=== PATIENT | female | born 2005 | race Caucasian/White ===

== ENCOUNTER 2024-01-18 18:56 | Emergency (ER) | payer BC, OTHER ==
[~2024-01-18] VITALS: Ht 162.6 cm; Wt 86.3 kg
[2024-01-18 20:07] LABS: Urine Bacteria FEW /hpf (None Seen); Urine Blood 2+ /uL (Negative); Urine Clarity Turbid (Clear); Urine Color Light-Yellow (Yellow); Urine Protein, UAD 1+ (Negative); Urine Specific Gravity 1.014 (1.001-1.035); Urine Urobilinogen Normal (Negative); Urine WBC 10 /hpf (0 - 5)
[2024-01-18] MEDS: SULFAMETHOX W/TRIMETH(800/160MG) DS TAB PO ONE (20:15)
[2024-01-18] MEDS: IBUPROFEN 600 MG TAB PO ONE (20:30)
[2024-01-18] MEDS: ONDANSETRON HCL 4 MG/2 ML VIAL IM ONE (20:45)
[2024-01-18] MEDS ORDERED: IBUP-1455 PO (21:56)
[2024-01-18] MEDS ORDERED: ZOFR4T PO (21:56)
[2024-01-18] MEDS ORDERED: NITR-87 PO (21:56)
[2024-01-18] MEDS ORDERED: ACE3T PO (21:56)
[2024-01-18] MEDS: MECLIZINE HCL 25 MG TAB PO ONE (22:00)
[2024-01-18] MEDS: KETOROLAC TROMETH 60MG/2ML VIAL IM ONE (23:26)
[2024-01-18 23:27] VITALS: BP 118/85; PULSE 78; RESP 20; TEMP 98.3; O2SAT 100
== END 2024-01-18 23:27 | disposition home or self-care (01) ==
LOC: ER 18:56
DX: N39.0 Urinary tract infection, site not specified (principal); E66.01 Morbid (severe) obesity due to excess calories; Z68.32 Body mass index [BMI] 32.0-32.9, adult
CPT/HCPCS: 81001; 81025; 96372; 99284; J1885; J2405; J8597